=== PATIENT | female | born 1960 | race Caucasian/White ===

== ENCOUNTER 2017-12-11 22:30 | Emergency (ER) | payer BC, SELFPAY ==
[2017-12-11 22:32] VITALS: BP 134/74; PULSE 77; RESP 16; TEMP 37.1; O2SAT 96; BMI 22.6
--- NOTE | 2017-12-11 22:44 | RAD_ITS ---
STUDY: X-RAY - RIGHT FOOT CLINICAL: Female, 57 years old. Right foot pain TECHNIQUE: 3 view(s) of the foot. COMPARISON: None. FINDINGS: Normal talus, calcaneus, and tarsal bones. Normal visualized subtalar, talonavicular, calcaneocuboid, tarsal and tarsometatarsal articulations. Normal metatarsi. There is degenerative arthrosis of the metatarsophalangeal joint of the hallux . Normal tibial and fibular sesamoid bones. Normal interphalangeal joint of the great toe. Normal phalanges of the great toe. Normal second through fifth metatarsophalangeal joints. Normal interphalangeal joints and phalanges of the lesser toes. The soft tissue structures are unremarkable. RAD/Foot min 3 Views IMPRESSION: There is degenerative arthrosis of the metatarsophalangeal joint of the hallux . Electronically Signed: Tommy Whyte MD at 23:23 EDT , Service support ,
--- NOTE | 2017-12-11 22:46 | RAD_ITS ---
STUDY: X-RAY - RIGHT ANKLE REASON FOR EXAM: Female, 57 years old. Right ankle pain after falling. TECHNIQUE: 3 view(s) of the ankle. COMPARISON: None. FINDINGS: Normal visualized distal tibia and fibula. Normal medial and lateral malleoli. Normal tibiotalar articulation and ankle mortise. Normal visualized talus and calcaneus. Small plantar spur of the calcaneus. The visualized subtalar, talonavicular, calcaneocuboid and tarsal articulations are normal. The soft tissue structures are unremarkable. RAD/Ankle min 3 Views IMPRESSION: Soft tissue injury without underlying fracture or dislocation. Small plantar spur of the calcaneus. Electronically Signed: Anushka Gurrola MD at 23:16 EDT , Service support ,
--- NOTE | 2017-12-11 22:46 | ED.DCSUM_ITS ---
- ER Visit Summary Date of Service: 12/11/17 Chief Complaint: Right ankle pain History of Present Illness: The patient is a 57 F presenting with right ankle pain. Patient states she was walking down steps in the garage and missed a step and twisted her ankle. She fell to the ground. She did not hit her head. She did not lose consciousness. She tried Advil at home. She complains of right ankle and foot pain. No other complaints. Physical Examination: Vitals are stable. Patient is afebrile. Alert no acute distress. HEENT exam is unremarkable. Lungs are clear and equal bilaterally. Heart is regular rate and rhythm. Extremities right lateral ankle tenderness and swelling. Tenderness along lateral right foot with ecchymosis. No achilles tenderness, no proximal fibula tenderness Skin is warm and dry. Remainder of exam is unremarkable. Emergency Department Course and Treatment: Ice pack was applied. X-ray of the right ankle and foot show no acute fracture. Patient is advised to ice and elevate. She was given an Aircast. She declined crutches. Advised to use NSAIDs for pain. Advised to follow-up with her primary care physician. Disposition: Discharge home Impression: Right ankle sprain, right foot contusion This note was generated with [employer] dictation software. It may contain incorrect words, spelling, and punctuation that were not noted in review of the chart prior to signing ED Disposition - Plan for ED Patient: Chief Complaint: Lower Extremity Injury Referrals: [facility] Doctor,Out of [Primary Care Provider] -
--- NOTE | 2017-12-11 23:43 | ED.DEP ---
ED Disposition - Plan for ED Patient: Chief Complaint: Lower Extremity Injury Instructions: ED Sprain Ankle W X Ray Referrals: [facility] Doctor,Out of [Primary Care Provider] -
[2017-12-11 23:54] VITALS: RESP 16
== END 2017-12-11 23:55 | disposition home or self-care (01) ==
PROVIDERS: Emergency Provider Emergency Medicine
DX: S93.401A Sprain of unspecified ligament of right ankle, initial encounter (principal); S90.31XA Contusion of right foot, initial encounter; X50.1XXA Overexertion from prolonged static or awkward postures, initial encounter; Y93.01 Activity, walking, marching and hiking; Y92.59 Other trade areas as the place of occurrence of the external cause
CPT/HCPCS: 73610; 73630; 99283